=== PATIENT | female | born 1980 | race Caucasian/White ===

== ENCOUNTER → 2020-08-23 | Outpatient (CLI) | payer OTHER ==
[2020-08-24 08:14] LABS: RHEUMATOID ARTHRITIS FACTOR <10.0 IU/mL (0.0-13.9)
[2020-08-24 09:14] LABS: VITAMIN D, 25-HYDROXY 30.3 ng/mL (30.0-100.0)
[2020-08-25 00:08] LABS: CCP ANTIBODIES IGG/IGA 32 units (0-19)
== END ==
LOC: LAB 15:25
PROVIDERS: Nurse Practitioner Family
DX: M25.50 Pain in unspecified joint (principal); M79.10 Myalgia, unspecified site; R53.83 Other fatigue
CPT/HCPCS: 36415; 82550; 82728; 83520; 85652; 86140; 86200; 86431